=== PATIENT | male | born 2000 | race Caucasian/White ===

== ENCOUNTER 2021-11-02 10:59 | Emergency (ER) | payer MEDICAID ==
[2021-11-02 11:16] VITALS: BP 146/79; PULSE 94; RESP 18; TEMP 99
--- NOTE | 2021-11-02 13:38 | ED ---
General Adult HPI - General Chief complaint: Upper Respiratory Infection Stated complaint: Covid exposure, wants antibodies Time Seen by Provider: 11/02/21 13:30 Source: patient, RN notes reviewed Mode of arrival: ambulatory Limitations: no limitations - History of Present Illness Initial comments: Well-appearing 21-year-old male presents to the emergency room with complaints of congestion and diarrhea for the past 4 days. He has positive coronavirus swabbing the ER today. He is requesting monoclonal antibodies. He denies any medical history is a nonsmoker -: days(s) (4) Severity scale (1-10): 0 Consistency: constant Associated Symptoms: headaches, other (diarrhea, congestion) - Related Data Home Medications Medication Instructions Recorded Confirmed No Known Home Medications 11/23/19 11/29/19 Allergies Allergy/AdvReac Type Severity Reaction Status Date / Time No Known Allergies Allergy Verified 11/02/21 11:13 Review of Systems ROS Statement: Those systems with pertinent positive or pertinent negative responses have been documented in the HPI. ROS Other: All systems not noted in ROS Statement are negative. Past Medical History Past Medical History: No Reported History History of Any Multi-Drug Resistant Organisms: None Reported Past Surgical History: Adenoidectomy, Orthopedic Surgery Additional Past Surgical History / Comment(s): R wrist Past Anesthesia/Blood Transfusion Reactions: No Reported Reaction Past Psychological History: No Psychological Hx Reported Past Alcohol Use History: Unable to Obtain Past Drug Use History: None Reported - Past Family History Father Family Medical History: Blood Disorder, Deep Vein Thrombosis (DVT) Additional Family Medical History / Comment(s): hx blood clotting disorder-blood clot from groin to the knee takes anticoagulants General Exam Limitations: no limitations General appearance: alert, in no apparent distress Head exam: Present: atraumatic, normocephalic, normal inspection Eye exam: Present: normal appearance, EOMI, conjunctival injection ENT exam: Present: normal exam, normal oropharynx, mucous membranes moist Neck exam: Present: normal inspection, full ROM. Absent: tenderness, meningismus, lymphadenopathy Respiratory exam: Present: normal lung sounds bilaterally. Absent: respiratory distress, wheezes, rales, rhonchi, stridor Cardiovascular Exam: Present: regular rate, normal rhythm, normal heart sounds. Absent: systolic murmur, diastolic murmur, rubs, gallop, clicks GI/Abdominal exam: Present: soft, normal bowel sounds. Absent: distended, tenderness, guarding, rebound, rigid Extremities exam: Present: full ROM, normal capillary refill Back exam: Absent: tenderness Neurological exam: Present: alert, oriented X3 Psychiatric exam: Present: normal affect, normal mood Skin exam: Present: warm, dry, intact, normal color. Absent: rash, cyanosis, diaphoretic, pallor Course Vital Signs 11/02/21 11:13 Temperature 99 F Pulse Rate 94 Respiratory 18 Rate Blood Pressure 146/79 O2 Sat by Pulse 97 Oximetry Medical Decision Making - Medical Decision Making This is a well-appearing 21-year-old male that presents to the emergency room with complaints of congestion and diarrhea. States the symptoms started approximately 4 days ago. He denies any chest pain or difficulty in breathing at this time. He is agreeable to receiving the monoclonal antibodies infusion. He does qualify based on BMI. He'll be given an order for monoclonal antibodies infusion and sent to [facility] for this medication. He was advised to return to the emergency room with any new or worsening symptoms. Self quarantine for 10 days from symptom onset. Increase fluid intake to prevent dehydration. - Lab Data Lab Results 11/02/21 Range/Units 11:17 Coronavirus (PCR) Detected A (Not Detectd) Disposition Clinical Impression: COVID-19 Disposition: HOME SELF-CARE Condition: Good Instructions (If sedation given, give patient instructions): Coronavirus Disease 2019 (COVID-19) Additional Instructions: Self quarantine for 10 days from symptom onset, increase your fluid intake to prevent dehydration. Return to the emergency room with any worsening symptoms. You can take vitamin C, vitamin D, and zinc to improve immune health. Is patient prescribed a controlled substance at d/c from ED?: No Referrals: None,Stated [Primary Care Provider] - 1-2 days Time of Disposition: 13:37
== END 2021-11-02 13:47 | disposition home or self-care (01) ==
LOC: EC 10:59
DX: U07.1 COVID-19 (principal)
CPT/HCPCS: 87635; 99284